=== PATIENT | male | born 1995 ===

== ENCOUNTER 2020-05-25 10:35 | Emergency (ER) | payer OTHER ==
[~2020-05-25] VITALS: Ht 185.4 cm; Wt 100.0 kg
[2020-05-25 11:24] LABS: COVID AG,FIA SOURCE NASOPHARYNGEAL
[2020-05-25 12:53] VITALS: BP 137/71
== END 2020-05-25 12:55 | disposition home or self-care (01) ==
LOC: EMS 10:36
DX: Z20.828 Contact with and (suspected) exposure to other viral communicable diseases (principal); F17.200 Nicotine dependence, unspecified, uncomplicated
CPT/HCPCS: 87426

== ENCOUNTER 2020-05-26 10:11 | Inpatient (IN) | payer OTHER ==
[~2020-05-26] VITALS: Ht 185.4 cm; Wt 90.9 kg
[2020-05-26] MEDS ORDERED: ACETAMINOPHEN 325 MG TABLET PO PRN ×2 (11:00→16:45)
[2020-05-26 11:19] LABS: BASOPHILS % (AUTO) 0.6 % (0.0-2.0); EOSINOPHILS % (AUTO) 6.3 % (1.0-6.0); HEMATOCRIT 45.7 % (41-53); HEMOGLOBIN 15.5 g/dL (13.5-17.5); LYMPHOCYTES % (AUTO) 21.5 % (22.0-44.0); MEAN CORPUSCULAR HEMOGLOBIN 29.9 pg (26.0-34.0); MEAN CORPUSCULAR HGB CONC 33.8 G/dL (31.0-37.0); MEAN CORPUSCULAR VOLUME 88 fL (80-100); MONOCYTES # (AUTO) 0.8 K/uL (0.1-1.0); NEUTROPHILS % (AUTO) 63.6 % (40.0-70.0); PLATELET COUNT (AUTO) 255 K/uL (150-450); RED BLOOD CELL COUNT(AUTO) 5.18 MIL/uL (4.50-5.90)
[2020-05-26] MEDS ORDERED: LORazepam 1 MG TABLET PO ONE (11:30)
[2020-05-26 11:34] LABS: ANION GAP 7 mmol/L (8-16); CALCIUM, TOTAL 9.3 mg/dL (8.8-10.5); CARBON DIOXIDE 28 mmol/L (22-29); CHLORIDE 102 mmol/L (98-107); CREATININE 0.79 mg/dL (0.60-1.30); GLOMERULAR FILTR. RATE CALC > 60 mL/min (>60); GLUCOSE,RANDOM 113 mg/dL (70-110); POTASSIUM 4.4 mmol/L (3.5-5.1); SODIUM SERUM 137 mmol/L (136-145); UREA NITROGEN, BLOOD 16 mg/dL (7-18)
[2020-05-26 11:40] LABS: ALANINE AMINOTRANSFERASE 97 U/L (12-78); ALBUMIN 3.4 g/dL (3.4-5.0); ALKALINE PHOSPHATASE 83 U/L (46-116); ASPARTATE AMINOTRANSFERASE 32 U/L (15-37); BILIRUBIN,TOTAL 1.8 mg/dL (0.1-1.0); TOTAL PROTEIN, SERUM 7.6 g/dL (6.4-8.2)
[2020-05-26 12:02] VITALS: BP 121/64
[2020-05-26] MEDS ORDERED: INFLUENZA VIRUS VACCINE QVS 2020-21 (6MO+)/PF 60 MCG/0.5 ML SYRINGE IM ONE (15:45)
[2020-05-26] MEDS ORDERED: MAGNESIUM HYDROXIDE SUSPENSION 30 ML UDCUP PO PRN (16:45)
[2020-05-26] MEDS ORDERED: ZOLPIDEM TARTRATE 5 MG TABLET PO PRN (16:45)
[2020-05-26] MEDS ORDERED: BISACODYL 10 MG RECTAL RECTAL SUPPOSITORY PR PRN (16:45)
[2020-05-26] MEDS ORDERED: ALBUTEROL SULFATE 2.5 MG/0.5 ML NEB SOLUTION NEB PRN (16:45)
[2020-05-26] MEDS ORDERED: IPRATROPIUM BROMIDE 0.5 MG/2.5 ML NEB SOLUTION NEB PRN (16:45)
[2020-05-26] MEDS ORDERED: ONDANSETRON HCL 4 MG/2 ML VIAL IVP PRN (16:45)
[2020-05-26 19:46] VITALS: BP 135/78
[2020-05-26] MEDS: DOCUSATE SODIUM 100 MG CAPSULE PO SCH (19:49)
[2020-05-26] MEDS ORDERED: OLANZapine 2.5 MG TABLET PO SCH (21:00)
[2020-05-26] MEDS: HEPARIN SODIUM,PORCINE 5,000 UNITS/ML VIAL SQ SCH (23:42)
[2020-05-27 05:00] VITALS: BP 136/79
[2020-05-27 08:12] VITALS: BP 150/65
[2020-05-27] MEDS: DOCUSATE SODIUM 100 MG CAPSULE PO SCH ×2 (08:12→20:08)
[2020-05-27] MEDS: HEPARIN SODIUM,PORCINE 5,000 UNITS/ML VIAL SQ SCH ×3 (08:13→23:57)
[2020-05-27] MEDS ORDERED: FLUoxetine HCL 20 MG CAPSULE PO SCH (09:00)
[2020-05-27 16:27] VITALS: BP 130/78
[2020-05-27 20:07] VITALS: BP 138/78
[2020-05-27] MEDS: OLANZapine 5 MG TABLET PO SCH (20:09)
[2020-05-28 04:52] VITALS: BP 134/80
[2020-05-28 08:13] VITALS: BP 140/83
[2020-05-28] MEDS: SERTRALINE HCL 50 MG TABLET PO SCH (08:50)
[2020-05-28] MEDS: DOCUSATE SODIUM 100 MG CAPSULE PO SCH ×2 (08:50→20:12)
[2020-05-28] MEDS: HEPARIN SODIUM,PORCINE 5,000 UNITS/ML VIAL SQ SCH ×3 (08:51→23:45)
[2020-05-28 16:00] VITALS: BP 130/89
[2020-05-28] MEDS: OLANZapine 5 MG TABLET PO SCH (20:12)
[2020-05-28 20:25] VITALS: BP 140/82
[2020-05-29 04:17] VITALS: BP 123/79
[2020-05-29] MEDS: HEPARIN SODIUM,PORCINE 5,000 UNITS/ML VIAL SQ SCH ×3 (08:00→23:36)
[2020-05-29 08:14] VITALS: BP 161/91
[2020-05-29] MEDS: SERTRALINE HCL 50 MG TABLET PO SCH (08:43)
[2020-05-29] MEDS: DOCUSATE SODIUM 100 MG CAPSULE PO SCH ×2 (08:43→20:09)
[2020-05-29 19:51] VITALS: BP 134/90
[2020-05-29] MEDS: OLANZapine 5 MG TABLET PO SCH (20:09)
[2020-05-30 08:00] VITALS: BP 127/76
[2020-05-30] MEDS: SERTRALINE HCL 50 MG TABLET PO SCH (08:10)
[2020-05-30] MEDS: DOCUSATE SODIUM 100 MG CAPSULE PO SCH ×2 (08:10→19:43)
[2020-05-30] MEDS: HEPARIN SODIUM,PORCINE 5,000 UNITS/ML VIAL SQ SCH ×3 (08:10→23:13)
[2020-05-30 19:40] VITALS: BP 115/70
[2020-05-30] MEDS: OLANZapine 5 MG TABLET PO SCH (19:43)
[2020-05-31 05:00] VITALS: BP 108/75
[2020-05-31 08:23] VITALS: BP 134/82
[2020-05-31] MEDS: SERTRALINE HCL 50 MG TABLET PO SCH (08:35)
[2020-05-31] MEDS: DOCUSATE SODIUM 100 MG CAPSULE PO SCH ×2 (08:35→21:00)
[2020-05-31] MEDS: HEPARIN SODIUM,PORCINE 5,000 UNITS/ML VIAL SQ SCH ×2 (08:36→15:38)
[2020-05-31 15:54] VITALS: BP 130/75
[2020-05-31 20:05] VITALS: BP 127/73
[2020-05-31] MEDS: OLANZapine 5 MG TABLET PO SCH (20:18)
[2020-06-01 05:20] VITALS: BP 116/67
[2020-06-01 08:08] VITALS: BP 127/84
[2020-06-01] MEDS: SERTRALINE HCL 50 MG TABLET PO SCH (08:18)
[2020-06-01] MEDS: HEPARIN SODIUM,PORCINE 5,000 UNITS/ML VIAL SQ SCH ×4 (08:18→23:40)
[2020-06-01] MEDS: DOCUSATE SODIUM 100 MG CAPSULE PO SCH ×2 (08:19→21:00)
[2020-06-01 20:10] VITALS: BP 128/76
[2020-06-01] MEDS: OLANZapine 5 MG TABLET PO SCH (20:19)
[2020-06-02 05:05] VITALS: BP 121/74
[2020-06-02 07:49] VITALS: BP 126/75
[2020-06-02] MEDS: DOCUSATE SODIUM 100 MG CAPSULE PO SCH ×2 (08:17→19:58)
[2020-06-02] MEDS: HEPARIN SODIUM,PORCINE 5,000 UNITS/ML VIAL SQ SCH ×2 (08:17→16:22)
[2020-06-02] MEDS: SERTRALINE HCL 50 MG TABLET PO SCH (08:17)
[2020-06-02] MEDS: OLANZapine 5 MG TABLET PO SCH (19:58)
[2020-06-02 20:22] VITALS: BP 135/75
[2020-06-02 22:17] LABS: AMPHET/METH SCREEN,URINE NEGATIVE (NEGATIVE); BARBITURATE SCREEN, URINE NEGATIVE (NEGATIVE); BENZODIAZEPINES SCREEN,URINE NEGATIVE (NEGATIVE); CANNABINOID SCREEN,URINE NEGATIVE (NEGATIVE); COCAINE SCREEN,URINE NEGATIVE (NEGATIVE); METHADONE SCREEN, URINE NEGATIVE (NEGATIVE); OPIATE SCREEN,URINE NEGATIVE (NEGATIVE)
[2020-06-02 22:20] LABS: PHENCYCLIDINE SCREEN,URINE NEGATIVE (NEGATIVE)
[2020-06-03] MEDS: HEPARIN SODIUM,PORCINE 5,000 UNITS/ML VIAL SQ SCH ×4 (00:07→23:44)
[2020-06-03 05:04] VITALS: BP 131/75
[2020-06-03] MEDS: DOCUSATE SODIUM 100 MG CAPSULE PO SCH ×2 (07:44→20:11)
[2020-06-03] MEDS: SERTRALINE HCL 50 MG TABLET PO SCH (07:46)
[2020-06-03 08:11] VITALS: BP 120/70
[2020-06-03] MEDS ORDERED: SERT50TA12 PO (10:35)
[2020-06-03] MEDS ORDERED: OLAN5TAB2 PO (10:35)
[2020-06-03 15:14] VITALS: BP 132/63
[2020-06-03 19:00] VITALS: BP 144/77
[2020-06-03] MEDS: OLANZapine 5 MG TABLET PO SCH (20:11)
[2020-06-04 03:59] VITALS: BP 125/68
== END 2020-06-04 05:54 | DRG 880 ==
LOC: EMS 10:15 → 6S 11:09
PROVIDERS: ADMIT Hospitalist; ATTEND Hospitalist
DX: R45.851 Suicidal ideations (principal); F15.20 Other stimulant dependence, uncomplicated; F31.4 Bipolar disorder, current episode depressed, severe, without psychotic features; F41.9 Anxiety disorder, unspecified; Z81.8 Family history of other mental and behavioral disorders; Z59.0 Homelessness; F17.210 Nicotine dependence, cigarettes, uncomplicated; Z88.8 Allergy status to other drugs, medicaments and biological substances; R53.83 Other fatigue; Z23 Encounter for immunization
CPT/HCPCS: 90686; G0480; J1644; J2405